=== PATIENT | female | born 1960 | race Caucasian/White ===

== ENCOUNTER 2020-05-19 20:05 | Emergency (ER) | payer OTHER ==
[~2020-05-19] VITALS: Ht 160 cm; Wt 81.6 kg
[~2020-05-19 20:05] MED LIST: FOLIC ACID1 MG PO; PREDNISONE10 MG PO; PROTONIX40 MG PO
[2020-05-19] MEDS ORDERED: COZAAR50 MG (20:20)
[2020-05-19] MEDS ORDERED: RELAFEN DS1000 MG (20:20)
[2020-05-19] MEDS ORDERED: DAFLONEX-XL 11300 MG (20:20)
[2020-05-19] MEDS ORDERED: ADULT LOW DOSE81 M1 (20:21)
[2020-05-19] MEDS ORDERED: TREXALL10 MG (20:22)
[2020-05-20] MEDS ORDERED: LEVOFLOXACIN250 MG PO (04:06)
[2020-05-20] MEDS ORDERED: TAMS0.4C PO (04:06)
[2020-05-20] MEDS ORDERED: TRAMADOL HCL50 MG PO (04:06)
== END 2020-05-20 04:17 | disposition home or self-care (01) ==
LOC: ER 20:05
DX: N20.1 Calculus of ureter (principal); N20.0 Calculus of kidney; Z20.822 Contact with and (suspected) exposure to COVID-19